=== PATIENT | male | born 1975 | race Caucasian/White ===

== ENCOUNTER 2019-07-04 23:37 | Emergency (ER) | payer BC ==
--- NOTE | 2019-07-05 00:08 | EDM.PDOC ---
ED HPI GENERAL MEDICAL PROBLEM - General Chief Complaint: Laceration Stated Complaint: "I cut my finger" Time Seen by Provider: 07/05/19 00:07 Source of Information: Reports: Patient History Limitations: Reports: No Limitations - History of Present Illness INITIAL COMMENTS - FREE TEXT/NARRATIVE: This patient is a 44 year old male that presents to the ER. Patient reports using a rotary saw to cut quilt for when he cut his left 4th finger. Patient denies any other injury. 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 Body Image: 1 - laceration left 4th Severity: Mild Improves with: Reports: None Worsens with: Reports: None Associated Symptoms: Reports: No Other Symptoms - Related Data Allergies Allergy/AdvReac Type Severity Reaction Status Date / Time No Known Allergies Allergy Verified 04/22/15 09:35 Home Meds: Home Meds Fluticasone Propionate [Flonase] 2 spray NASBOTH DAILY 04/20/15 [History] Pantoprazole Sodium [Protonix] 20 mg PO DAILY 07/04/19 [History] atorvaSTATin [Lipitor] 40 mg PO BEDTIME 07/04/19 [History] Past Medical History HEENT History: Reports: Other (See Below) Other HEENT History: Nasal surgery, esophageal stretching Cardiovascular History: Reports: High Cholesterol Gastrointestinal History: Reports: GERD - Past Surgical History Cardiovascular Surgical History: Reports: None GI Surgical History: Reports: None Social & Family History - Tobacco Use Smoking Status *Q: Never Smoker Second Hand Smoke Exposure: No - Recreational Drug Use Recreational Drug Use: No ED ROS GENERAL - Review of Systems Review Of Systems: See Below Musculoskeletal: Reports: No Symptoms. Denies: Hand Pain, Joint Pain, Joint Swelling Skin: Reports: Wound (laceration left 4th digit) Neurological: Denies: Numbness ED EXAM, SKIN/RASH Exam: See Below Exam Limited By: No Limitations General Appearance: Alert, WD/WN, No Apparent Distress Peripheral Pulses: 2+: Radial (L) Extremities: Normal Range of Motion, Non-Tender, Normal Capillary Refill Psychiatric: Anxious Skin: Warm, Dry, Normal Color, No Rash, Wound/Incision Location, Skin: Upper Extremity, Left, Other (laceration 1.5cm curved with skin flap that is thin. Can not suture, would tear the thin skin flap. ) Course - Vital Signs Last Recorded V/S: Last Vital Signs Temp 96.2 F 07/05/19 00:05 Pulse 69 07/05/19 00:05 Resp 16 07/05/19 00:05 BP 120/68 07/05/19 00:05 Pulse Ox 94 L 07/05/19 00:05 - Orders/Labs/Meds Meds: Medications Discontinued Medications Generic Name Dose Route Start Last Admin Trade Name Freq PRN Reason Stop Dose Admin Neomycin/Polymyxin/Bacitracin Confirm 07/04/19 23:53 Triple Antibiotic Oint Administered 07/04/19 23:54 Dose 1 each .ROUTE .STK-MED ONE Departure - Departure Time of Disposition: 00:07 Disposition: Home, Self-Care 01 Condition: Good Clinical Impression: Laceration - Discharge Information *PRESCRIPTION DRUG MONITORING PROGRAM REVIEWED*: Not Applicable *COPY OF PRESCRIPTION DRUG MONITORING REPORT IN PATIENT SHARLA: Not Applicable Instructions: Laceration Care, Adult, [id number] Forms: ED Department Discharge Additional Instructions: Followup with primary care provider if needed Return to the ER as needed Keep the wound clean, wash gently with soap and water, apply neosporin, keep covered - Assessment/Plan Plan: PLEASE SEE RN NOTE FOR PFSH.
[2019-07-05 00:11] VITALS: BP 120/68; PULSE 69
[2019-07-05] MEDS: Bacitracin/Neomycin/Polymyxin B Oint 0.9 GM U/D Packet TOP ONE (00:16)
[2019-07-05] MEDS: Bacitracin/Neomycin/Polymyxin B Oint 0.9 GM U/D Packet ONE (00:20)
== END 2019-07-05 00:15 | disposition home or self-care (01) ==
LOC: CC.ED 23:37
DX: S61.215A Laceration without foreign body of left ring finger without damage to nail, initial encounter (principal); K21.9 Gastro-esophageal reflux disease without esophagitis; E78.5 Hyperlipidemia, unspecified; Z79.899 Other long term (current) drug therapy; W29.8XXA Contact with other powered hand tools and household machinery, initial encounter
CPT/HCPCS: 99282

== ENCOUNTER 2019-11-04 23:56 | Emergency (ER) | payer BC ==
[2019-11-05 00:10] VITALS: BP 165/98; PULSE 80
--- NOTE | 2019-11-05 00:19 | EDM.PDOC ---
ED HPI GENERAL MEDICAL PROBLEM - General Chief Complaint: General Stated Complaint: ear pain Time Seen by Provider: 11/05/19 00:10 Source of Information: Reports: Patient History Limitations: Reports: No Limitations - History of Present Illness INITIAL COMMENTS - FREE TEXT/NARRATIVE: states that he has had a cold for several days and was taking sudafed for it. Symptoms have improved until tonight about 1930 when his right ear plugged up and caused pressure in it. He tried to run water in it in the shower without improvement. Used heat. Has not taken any tylenol or ibuprofen today. No fever with t. States that he doesn't have much pain but has pressure. Onset: Gradual Quality: Reports: Pressure Associated Symptoms: Reports: No Other Symptoms. 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 Denies: Acetaminophen, NSAIDS - Related Data Allergies Allergy/AdvReac Type Severity Reaction Status Date / Time No Known Allergies Allergy Verified 11/04/19 23:57 Home Meds: Home Meds Fluticasone Propionate [Flonase] 2 spray NASBOTH DAILY 04/20/15 [History] Pantoprazole Sodium [Protonix] 20 mg PO DAILY 07/04/19 [History] atorvaSTATin [Lipitor] 40 mg PO BEDTIME 07/04/19 [History] Past Medical History HEENT History: Reports: Other (See Below) Other HEENT History: Nasal surgery, esophageal stretching Cardiovascular History: Reports: High Cholesterol Gastrointestinal History: Reports: GERD - Past Surgical History Cardiovascular Surgical History: Reports: None GI Surgical History: Reports: None Social & Family History - Family History Family Medical History: Noncontributory - Tobacco Use Smoking Status *Q: Never Smoker Second Hand Smoke Exposure: No ED ROS GENERAL - Review of Systems Review Of Systems: See Below Constitutional: Denies: Fever, Chills HEENT: Reports: Ear Pain. Denies: Ear Discharge Respiratory: Reports: No Symptoms ED EXAM, GENERAL - Physical Exam Exam: See Below Exam Limited By: No Limitations General Appearance: Alert, WD/WN, Mild Distress Ears: Normal External Exam, Normal Canal Ear Exam: Right Ear: TM Dull, TM Bulging, Bilateral Ear: Canal Normal Throat/Mouth: Normal Inspection, Normal Oropharynx Neck: Supple Respiratory/Chest: No Respiratory Distress, Lungs Clear Cardiovascular: Regular Rate, Rhythm Course - Vital Signs Last Recorded V/S: Last Vital Signs Temp 98.2 F 11/04/19 23:58 Pulse 80 11/04/19 23:58 Resp 18 11/04/19 23:58 BP 165/98 H 11/04/19 23:58 Pulse Ox 97 11/04/19 23:58 Departure - Departure Time of Disposition: 00:18 Disposition: Home, Self-Care 01 Condition: Good Clinical Impression: Acute middle ear effusion Qualifiers: Laterality: right Qualified Code(s): H65.191 - Other acute nonsuppurative otitis media, right ear - Discharge Information *PRESCRIPTION DRUG MONITORING PROGRAM REVIEWED*: Not Applicable *COPY OF PRESCRIPTION DRUG MONITORING REPORT IN PATIENT SHARLA: Not Applicable Referrals: Shawn Carrion MD [Primary Care Provider] - Forms: ED Department Discharge Additional Instructions: decongestant of choice ibuprofen or tylenol for discomfort blow nose to cause pressure to pop ear open recheck in clinic if symptoms change Sepsis Event Note - Evaluation Sepsis Screening Result: No Definite Risk - Focused Exam Vital Signs: Vital Signs Temp Pulse Resp BP Pulse Ox 11/04/19 23:58 98.2 F 80 18 165/98 H 97 Date Exam was Performed: 11/05/19 Time Exam was Performed: 00:20 - Problem List & Annotations (1) Acute middle ear effusion SNOMED Code(s): 17087004 Code(s): H65.199 - OTHER ACUTE NONSUPPURATIVE OTITIS MEDIA, UNSPECIFIED EAR Status: Acute Priority: High Current Visit: Yes Qualifiers: Laterality: right Qualified Code(s): H65.191 - Other acute nonsuppurative otitis media, right ear - Problem List Review Problem List Initiated/Reviewed/Updated: Yes
== END 2019-11-05 00:25 | disposition home or self-care (01) ==
LOC: CC.ED 23:56
DX: H93.8X1 Other specified disorders of right ear (principal); E78.00 Pure hypercholesterolemia, unspecified; K21.9 Gastro-esophageal reflux disease without esophagitis; Z79.899 Other long term (current) drug therapy
CPT/HCPCS: 99282

== ENCOUNTER 2024-08-20 08:25 | Day surgery (SDC) | payer BC ==
[2024-08-20] MEDS ORDERED: Flumazenil 0.1 MG/ML 5 ML MDV ONE (08:50)
[2024-08-20] MEDS ORDERED: Propofol 200 MG/20 ML SDV ONE (08:50)
[2024-08-20] MEDS ORDERED: Midazolam 1 MG/ML 2 ML SDV ONE (08:50)
[2024-08-20] MEDS ORDERED: fentaNYL 50 MCG/ML SDV ONE (08:50)
[2024-08-20] MEDS ORDERED: Lidocaine 2% 20 ML MDV ONE (08:50)
[2024-08-20] MEDS: Sodium Chloride 0.9% 250 ML IV SCH (09:00)
[2024-08-20 10:12] VITALS: BP 138/84; PULSE 68
== END 2024-08-20 11:10 | disposition home or self-care (01) ==
LOC: CC.SDS 08:25
PROVIDERS: ATTEND Surgery
DX: K22.2 Esophageal obstruction (principal); I10 Essential (primary) hypertension; K44.9 Diaphragmatic hernia without obstruction or gangrene; E78.5 Hyperlipidemia, unspecified
CPT/HCPCS: J2250; J2704; J3010; J3490; J7050